=== PATIENT | male | born 1990 | race Caucasian/White ===

== ENCOUNTER 2017-09-22 12:10 | Emergency (ER) | payer OTHER, MEDICAID ==
--- NOTE | 2017-09-22 12:30 | EDPHY ---
H & P Time Seen by Provider: 09/22/17 12:23 HPI/ROS: CHIEF COMPLAINT: Laceration left thumb HISTORY OF PRESENT ILLNESS: 27-year-old male right-hand dominant was using gill box fixer when he sustained accidental laceration to his left thumb dorsal aspect at the MCP. He went to Urgent Care was referred to the ER after received tetanus update. PHYSICAL EXAM (Prior to examination, patient consented to physical exam, hands were washed and my usual and customary physical exam procedures followed) 1) GENERAL: Well-developed, well-nourished, alert and oriented. Appears to be in no acute distress. 2) HEAD: Normocephalic 3) HEENT: sclera anicteric 4) LUNGS: Breathing comfortably. 5) SKIN: Left thumb dorsal aspect at the MCP 2 cm laceration, well demarcated, linear. Slight weakness of extensor pollicis longus testing. Able to visualize a partially lacerated tendon. Signs of infection Smoking Status: Current every day smoker Constitutional: Initial Vital Signs Temperature (C) 37.1 C 09/22/17 12:13 Heart Rate 54 L 09/22/17 12:13 Respiratory Rate 17 09/22/17 12:13 Blood Pressure 137/63 H 09/22/17 12:13 O2 Sat (%) 99 09/22/17 12:13 O2 Delivery Mode Room Air Allergies/Adverse Reactions: No Known Allergies Allergy (Unverified 06/29/10 16:11) Home Medications: Medication Instructions Recorded Cephalexin [Keflex] 500 mg PO TID 5 Days cap 09/22/17 Unknown Abx 09/22/17 ED Images - Extremities Hands Back Left/Right: 1 - Laceration MDM/Departure - MDM Procedures: Procedure: Laceration repair. I explained the indications, risks and benefits for both laceration repair and anesthetic administration. Verbal consent was obtained from the patient and parent. The laceration on the location was anesthetized using 0.5% bupivicaine without epinephrine. After anesthetic administered the patient was observed for a period of time and had no apparent adverse effects. The wound was cleaned, prepped, draped in normal sterile fashion and explored to its base. No foreign body seen, no foreign bodies palpated. Skin is closed with 4 simple interrupted 5 O Ethilon sutures. The wound repair was simple. The procedure was performed by myself. Patient has been informed that scarring will occur, although efforts have been made to minimize this. Procedure: Splint A Velcro thumb spica splint was applied by ER electronic security technician. After application of the splint I returned and re-examined the patient. The splint was adequately immobilizing the joint and distal to the splint the patient's circulation and sensation were intact. Patient shows no signs of compartment syndrome. Was given orthopedic precautions. Medications Given: Discontinued Medications Cephalexin HCl (Keflex) 500 mg PO EDNOW ONE PRN Reason: Protocol Stop: 09/22/17 12:59 Last Admin: 09/22/17 13:02 Dose: 500 mg ED Course/Re-evaluation: On-call hand surgery Dr. Antonio Vanessa was paged repeatedly with no answer as of 1:51 p.m. I believe this patient to have decision-making capacity. I have stressed the importance of follow-up with Hand surgery and provided this referral information He has been placed in a splint. Usual and customary wound precautions and instructions provided. Care of patient under supervision of secondary supervising physician Dr Watts . - Depart Disposition: Home, Routine, Self-Care Clinical Impression: Laceration of left thumb Qualifiers: Encounter type: initial encounter Damage to nail status: with damage Foreign body presence: without foreign body Qualified Code(s): S61.112A - Laceration without foreign body of left thumb with damage to nail, initial encounter Condition: Good Instructions: Care For Your Stitches (ED), Laceration (ED) Additional Instructions: Return to the ER if you develop redness, swelling, discharge, warmth to the wound, red streaks going up your arm, or any other symptoms that concern you. Prescriptions: Cephalexin [Keflex] 500 mg PO TID 5 Days cap Referrals: Antonio Vanessa MD [Medical Doctor] - 1-2 days without fail
[2017-09-22] MEDS ORDERED: CEPHALEXIN 500 MG CAP PO ONE (12:58)
[2017-09-22 13:59] VITALS: BP 135/78
== END 2017-09-22 13:59 | disposition home or self-care (01) ==
PROC: 0HQGXZZ Repair Left Hand Skin, External Approach (ICD-10-PCS; principal; 2017-09-22)
DX: S61.112A Laceration without foreign body of left thumb with damage to nail, initial encounter (principal); F17.200 Nicotine dependence, unspecified, uncomplicated; W26.8XXA Contact with other sharp object(s), not elsewhere classified, initial encounter; Y99.8 Other external cause status; Y93.89 Activity, other specified
CPT/HCPCS: L3807